=== PATIENT | female | born 2000 | race Caucasian/White ===

== ENCOUNTER → 2024-04-04 07:51 | Outpatient (REF) | payer BC, SELFPAY | LOC: HWRAD 07:51 | PROVIDERS: ATTENDING PHYSICIAN Family Medicine | DX: E07.9 Disorder of thyroid, unspecified (principal); E01.0 Iodine-deficiency related diffuse (endemic) goiter | CPT/HCPCS: 76536 ==

== ENCOUNTER → 2024-08-01 16:53 | Outpatient (REF) | payer BC, SELFPAY | LOC: RAD 16:53 | PROVIDERS: ATTENDING PHYSICIAN Internal Medicine Nephrology; FAMILY PHYSICIAN Family Medicine | DX: N17.9 Acute kidney failure, unspecified (principal); N18.2 Chronic kidney disease, stage 2 (mild) | CPT/HCPCS: 76770 ==

== ENCOUNTER → 2024-10-31 06:39 | Outpatient (REF) | payer BC, SELFPAY | LOC: PAVMRI 06:39 | PROVIDERS: ATTENDING PHYSICIAN Psychiatry & Neurology Neurology; FAMILY PHYSICIAN Family Medicine | DX: G43.909 Migraine, unspecified, not intractable, without status migrainosus (principal) | CPT/HCPCS: 70551 ==